=== PATIENT | male | born 1955 | race Caucasian/White ===

== ENCOUNTER 2017-10-26 12:21 | Emergency (ER) | payer OTHER ==
[~2017-10-26] VITALS: Ht 185.4 cm; Wt 101.7 kg
[~2017-10-26 12:21] MED LIST: CLIN300C10 PO; MULT-892 PO; SIMV10TA2 PO
[2017-10-26 12:32] VITALS: TEMP 36.6; Ht 185.4 cm; Wt 101.7 kg
[2017-10-26] MEDS ORDERED: SODIUM CHLORIDE 0.9% 1000ML 1,000 ML IV STA (12:45)
[2017-10-26 14:08] LABS: BASO % 0.1 %; BASO ABS # 0.01 K/uL (0-0.2); EOS ABS # 0.07 K/uL (0-0.5); HEMATOCRIT 43.6 % (42-52); HEMOGLOBIN 15.7 g/dL (14.0-18.0); IG# 0.02 K/uL (0.00-0.02); LYMPH % 16.9 %; LYMPH ABS # 1.16 K/uL (1.2-3.4); MEAN CELL VOLUME 86.7 fL (80-100); MEAN CORPUSCULAR HEMOGLOBIN 31.2 pg (25-34); MEAN PLATELET VOLUME 9.8 fL (7.4-10.4); MONO % 5.1 %; MONO ABS # 0.35 K/uL (0.11-0.59); NEUT % 76.6 %; NEUT ABS # 5.25 K/uL (1.4-6.5); PLATELET COUNT 186 K/uL (130-400); RED CELL DISTRIBUTION WIDTH CV 13.4 % (11.5-14.5); RED CELL DISTRIBUTION WIDTH SD 42.2 fL (36.4-46.3); WHITE BLOOD COUNT 6.86 K/uL (4.8-10.8)
--- NOTE | 2017-10-26 14:20 | DIAGNOSTIC IMAGING REPORT ---
ABD/PELVIS NO IV OR ORAL CONT CT DOSE: 1168.73 mGycm HISTORY: Pain h/o stones, BPH TECHNIQUE: Multiaxial CT images of the abdomen and pelvis were performed without contrast. A dose lowering technique was utilized adhering to the principles of ALARA. COMPARISON STUDY: 03/20/2006 FINDINGS: Lung bases are clear. Several small hepatic cysts superior right hepatic lobe. Several additional cysts versus small hemangiomas within the right as well as left hepatic lobe. These are similar as compared to the prior study. Several gallstones within the gallbladder lumen. Pancreas and spleen are unremarkable. The kidneys are negative for hydronephrosis or calcification. Previous calcification within the proximal left ureter has passed. There is evidence, however for a 5 mm calculus distal left ureter approximately 2 cm from the left ureteral vesicle junction. Mild fullness of the left ureter and left renal pelvis are noted. Bowel pattern is nonobstructive. There are findings of a mild chronic sigmoid diverticulosis. Bladder is midline. There are no contained calcifications. There is a very small urachal remnant. The appendix appears to be normal. The prostate is moderately enlarged. No significant adenopathy. IMPRESSION: 1. 5 mm partially obstructing calculus distal left ureter. 2. Mild fullness left ureter and left renal collecting system. 3. Nonobstructive bowel pattern. 4. Mild chronic sigmoid diverticulosis. 5. Moderate prostate enlargement. The above report was generated using voice recognition software. It may contain grammatical, syntax or spelling errors. Electronically signed by: Jordan Nagel M.D. 10/26/2017 2:19 PM Dictated Date/Time: 10/26/2017 2:09 PM
[2017-10-26 14:26] LABS: ALBUMIN 4.1 gm/dl (3.4-5.0); CALCIUM 9.3 mg/dl (8.5-10.1); CREATININE 1.08 mg/dl (0.60-1.40); POTASSIUM 4.2 mmol/L (3.5-5.1)
[2017-10-26 14:29] LABS: TOTAL PROTEIN 6.7 gm/dl (6.4-8.2)
[2017-10-26] MEDS ORDERED: LPR25 PO (14:33)
[2017-10-26] MEDS ORDERED: ASPI81TA28 PO (14:33)
[2017-10-26] MEDS ORDERED: OXYC1TAB3 PO (14:47)
[2017-10-26] MEDS ORDERED: TAMS0.4C38 PO (14:47)
--- NOTE | 2017-10-26 14:54 | EMERGENCY ROOM VISIT NOTE ---
History First contact with patient: 12:36 Chief Complaint: FLANK PAIN Stated Complaint: FLANK PAIN FROM POSSIBLE KIDNEY STONE History of Present Illness The patient is a 61 year old male who presents to the Emergency Room with complaints of mild dysuria, increased urinary frequency and left flank pain. The patient reports that the pain started this morning. The patient reports that he has had a prior history of kidney stones. He has previously followed with Dr. Gates, and had a lithotripsy performed proximally 10 years ago. The patient has not noticed any blood in his urine. He reports that in a recent physical exam, his PCP thought that he may have had mild prostatic enlargement. The patient denies any nausea, fever or chills, abdominal pain, constipation, diarrhea or abdominal distention. He currently denies any significant pain on my exam, rating his discomfort a 4 out of 10 in triage. Review of Systems HEENT: Denies dizziness, visual problems, hearing loss, tinnitus. Denies difficulty swallowing or oral lesions. PULMONARY: Denies cough, shortness of breath, sputum production or hemoptysis. CARDIOVASCULAR: Denies chest pain, palpitations, dyspnea on exertion, orthopnea or peripheral edema. GASTROINTESTINAL: Denies diarrhea, constipation, nausea, vomiting, or abdominal pain. GENITOURINARY: See HPI. NEUROLOGIC: Denies history of epilepsy, CVA, TIA or chronic headaches. MUSCULOSKELETAL: Denies history of joint tenderness/swelling. SKIN: Denies rashes or lesions. PSYCHIATRIC: Denies history of depression or mental illness. ENDOCRINE: Denies history of diabetes or thyroid disorders. Past Medical/Surgical History Medical Problems: (1) Calculus Of Kidney (2) Jean Pierre Aorta Valv Insuffic (3) Hyperlipidemia Nec/Nos (4) Hypertension (5) Hypertension Nos Surgical Problems: (1) History of aortic valve replacement Family History Unremarkable Social History Smoking Status: Never Smoker Alcohol Use: occasionally Marital Status: Occupation Status: employed Current/Historical Medications Scheduled Aspirin (Aspirin Ec), 81 MG PO QAM Metoprolol Tartrate (Lopressor), 25 MG PO BID Multiple Vitamins W/ Minerals (Centrum Ultra Mens), 1 TABLET PO QAM Simvastatin (Zocor), 10 MG PO QPM Tamsulosin Hcl (Flomax), 0.4 MG PO DAILY Scheduled PRN Clindamycin Hcl (Clindamycin Hcl), 600 MG PO for prn-1 hour prior to procedure Oxycodone Ir (Roxicodone Ir), 1-2 TAB PO Q4H PRN for Pain Physical Exam Vital Signs Date Time Temp Pulse Resp B/P (MAP) Pulse Ox O2 Delivery O2 Flow Rate FiO2 10/26/17 12:32 36.6 58 18 158/108 96 Room Air Physical Exam CONSTITUTIONAL: Healthy and well nourished. Alert and oriented X 3 with positive affect. Patient does not appear in any acute distress. HEENT: Normocephalic, atraumatic. Pupils equal, round and reactive. No scleral icterus or conjunctival injection/pallor. NECK: Full active range of motion without discomfort. RESPIRATORY: Clear to auscultation bilaterally with no wheezing, crackles, rhonchi or stridor. CARDIOVASCULAR: Regular rate and rhythm with no murmurs, rubs or gallops. GASTROINTESTINAL: Bowel sounds present in all quadrants. No abdominal tenderness to palpation. Negative CVA tenderness. Negative McBurney's point tenderness. MUSCULOSKELETAL: Full range of motion of all joints without discomfort. No tenderness to palpation through the thoracolumbar spine or paraspinous muscles. INTEGUMENTARY: No rash or other significant dermatologic conditions noted. HEMATOLOGIC: No ecchymosis or petechiae noted. NEUROLOGIC: No focal neurologic deficits noted. Medical Decision & Procedures ER Provider Diagnostic Interpretation: Noncontrast CT of the abdomen and pelvis shows a 5 mm distal left ureteral calculus, and moderate prostatic hypertrophy. Radiologist report is as follows: ABD/PELVIS NO IV OR ORAL CONT CT DOSE: 1168.73 mGycm HISTORY: Pain h/o stones, BPH TECHNIQUE: Multiaxial CT images of the abdomen and pelvis were performed without contrast. A dose lowering technique was utilized adhering to the principles of ALARA. COMPARISON STUDY: 03/20/2006 FINDINGS: Lung bases are clear. Several small hepatic cysts superior right hepatic lobe. Several additional cysts versus small hemangiomas within the right as well as left hepatic lobe. These are similar as compared to the prior study. Several gallstones within the gallbladder lumen. Pancreas and spleen are unremarkable. The kidneys are negative for hydronephrosis or calcification. Previous calcification within the proximal left ureter has passed. There is evidence, however for a 5 mm calculus distal left ureter approximately 2 cm from the left ureteral vesicle junction. Mild fullness of the left ureter and left renal pelvis are noted. Bowel pattern is nonobstructive. There are findings of a mild chronic sigmoid diverticulosis. Bladder is midline. There are no contained calcifications. There is a very small urachal remnant. The appendix appears to be normal. The prostate is moderately enlarged. No significant adenopathy. IMPRESSION: 1. 5 mm partially obstructing calculus distal left ureter. 2. Mild fullness left ureter and left renal collecting system. 3. Nonobstructive bowel pattern. 4. Mild chronic sigmoid diverticulosis. 5. Moderate prostate enlargement. Laboratory Results 10/26/17 13:35 Red Blood Count 5.03, Mean Corpuscular Volume 86.7, Mean Corpuscular Hemoglobin 31.2, Mean Corpuscular Hemoglobin Concent 36.0, Mean Platelet Volume 9.8, Neutrophils (%) (Auto) 76.6, Lymphocytes (%) (Auto) 16.9, Monocytes (%) (Auto) 5.1, Eosinophils (%) (Auto) 1.0, Basophils (%) (Auto) 0.1, Neutrophils # (Auto) 5.25, Lymphocytes # (Auto) 1.16, Monocytes # (Auto) 0.35, Eosinophils # (Auto) 0.07, Basophils # (Auto) 0.01 10/26/17 13:35 Test 10/26/17 13:35 White Blood Count 6.86 K/uL (4.8-10.8) Red Blood Count 5.03 M/uL (4.7-6.1) Hemoglobin 15.7 g/dL (14.0-18.0) Hematocrit 43.6 % (42-52) Mean Corpuscular Volume 86.7 fL (80-100) Mean Corpuscular Hemoglobin 31.2 pg (25-34) Mean Corpuscular Hemoglobin Concent 36.0 g/dl (32-36) Platelet Count 186 K/uL (130-400) Mean Platelet Volume 9.8 fL (7.4-10.4) Neutrophils (%) (Auto) 76.6 % Lymphocytes (%) (Auto) 16.9 % Monocytes (%) (Auto) 5.1 % Eosinophils (%) (Auto) 1.0 % Basophils (%) (Auto) 0.1 % Neutrophils # (Auto) 5.25 K/uL (1.4-6.5) Lymphocytes # (Auto) 1.16 K/uL (1.2-3.4) Monocytes # (Auto) 0.35 K/uL (0.11-0.59) Eosinophils # (Auto) 0.07 K/uL (0-0.5) Basophils # (Auto) 0.01 K/uL (0-0.2) RDW Standard Deviation 42.2 fL (36.4-46.3) RDW Coefficient of Variation 13.4 % (11.5-14.5) Immature Granulocyte % (Auto) 0.3 % Immature Granulocyte # (Auto) 0.02 K/uL (0.00-0.02) Urine Color DK YELLOW Urine Appearance CLOUDY (CLEAR) Urine pH 5.0 (4.5-7.5) Urine Specific [place] 1.025 (1.000-1.030) Urine Protein 1+ (NEG) Urine Glucose (UA) NEG (NEG) Urine Ketones TRACE (NEG) Urine Occult Blood 3+ (NEG) Urine Nitrite NEG (NEG) Urine Bilirubin NEG (NEG) Urine Urobilinogen NEG (NEG) Urine Leukocyte Esterase TRACE (NEG) Urine WBC (Auto) 1-5 /hpf (0-5) Urine RBC (Auto) >30 /hpf (0-4) Urine Hyaline Casts (Auto) 5-10 /lpf (0-5) Urine Epithelial Cells (Auto) 5-10 /lpf (0-5) Urine Bacteria (Auto) NEG (NEG) Anion Gap 5.0 mmol/L (3-11) Est Creatinine Clear Calc Drug Dose 92.3 ml/min Estimated GFR () 86.6 Estimated GFR (Non- 74.7 BUN/Creatinine Ratio 16.4 (10-20) Calcium Level 9.3 mg/dl (8.5-10.1) Total Bilirubin 0.6 mg/dl (0.2-1) Aspartate Amino Transf (AST/SGOT) 19 U/L (15-37) Alanine Aminotransferase (ALT/SGPT) 29 U/L (12-78) Alkaline Phosphatase 64 U/L (45-117) Total Protein 6.7 gm/dl (6.4-8.2) Albumin 4.1 gm/dl (3.4-5.0) Globulin 2.6 gm/dl (2.5-4.0) Albumin/Globulin Ratio 1.6 (0.9-2) Lipase 126 U/L (73-393) The above labs were reviewed and were grossly normal. Urinalysis is not suggestive of infection. Medications Administered Medications (Trade) Dose Ordered Sig/Valentin Route Start Time Stop Time Status Last Admin Dose Admin Sodium Chloride 1,000 ml @ 999 mls/hr Q1H1M STAT IV 10/26/17 12:45 10/26/17 13:45 DC 10/26/17 13:45 999 MLS/HR ED Course Patient history and physical exam were performed. Nurse's notes were reviewed. Vital signs were reviewed, showing a blood pressure of 158/108. The patient denies any significant distress on exam. IV access was established, and labs were drawn. The patient was hydrated with a liter normal saline. Labs were reviewed and were grossly normal, including a urinalysis showing no evidence for infection. Hematuria is noted and consistent with probable ureteral calculus. Noncontrast CT shows a 5 mm distal left ureteral calculus, and moderate prostatic hypertrophy. Findings were discussed with the patient. He denied any discomfort on final exam. The patient will be provided prescriptions for Flomax and OxyIR 5 mg. She was encouraged to increase fluid intake and activity. He was encouraged to follow- up with urology with any persistent symptoms. Return to the emergency department for any uncontrollable pain, vomiting or developing fever. The patient was happy with plan of care, and voiced understanding of all discharge instructions. Medical Decision See previous section. CT scan does show evidence for a distal left ureteral calculus. I do not suspect bowel obstruction, appendicitis, diverticulitis, hepatitis, cholecystitis, pancreatitis or gastric etiologies. I also do not suspect musculoskeletal or cardiopulmonary etiologies. The patient is afebrile and has no leukocytosis to suggest infection. Urinalysis does not show any evidence for UTI. [place] Drug Monitoring Program Search Results: patient reviewed within database, no issues identified Medication Reconcilliation Current Medication List: was personally reviewed by me Blood Pressure Screening Patient's blood pressure: Elevated blood pressure Blood pressure disposition: Referred to PCP Impression Primary Impression: Left ureteral calculus Additional Impressions: Prostatic hypertrophy Elevated blood pressure reading with diagnosis of hypertension Departure Information Prescriptions Oxycodone Ir (Roxicodone Ir) 5 Mg Tab 1-2 TAB PO Q4H Y for Pain, #15 TAB For Initial Treatment Prov: Crescencio Solano PA 10/26/17 Tamsulosin Hcl (FLOMAX) 0.4 Mg Cap 0.4 MG PO DAILY for 5 Days, #5 CAP Prov: Crescencio Solano PA 10/26/17 Referrals Demetrius Ramsay M.D. (PCP) Patient Instructions My [facility] Problem Qualifiers
[2017-10-26 15:13] VITALS: BP 166/94; PULSE 54; O2SAT 96
== END 2017-10-26 15:16 | disposition home or self-care (01) ==
LOC: C.EDB 12:22 → C.EDA 15:16
DX: N20.1 Calculus of ureter (principal); N40.0 Benign prostatic hyperplasia without lower urinary tract symptoms; I10 Essential (primary) hypertension; E78.5 Hyperlipidemia, unspecified; Z79.82 Long term (current) use of aspirin